=== PATIENT | female | born 1970 | race Caucasian/White ===

== ENCOUNTER → 2017-02-24 | Outpatient (CLI) | payer OTHER | END | disposition home or self-care (01) | LOC: RAD 12:26 | PROVIDERS: ATTEND Orthopaedic Surgery | DX: M94.261 Chondromalacia, right knee (principal); M25.461 Effusion, right knee; S83.191A Other subluxation of right knee, initial encounter; X58.XXXA Exposure to other specified factors, initial encounter; Y93.89 Activity, other specified; Y92.89 Other specified places as the place of occurrence of the external cause; Y99.8 Other external cause status ==

== ENCOUNTER → 2017-11-04 | Outpatient (CLI) | payer OTHER | END | disposition home or self-care (01) | LOC: CFH 11:01 | PROVIDERS: ATTEND Obstetrics & Gynecology | DX: N88.8 Other specified noninflammatory disorders of cervix uteri (principal) | CPT/HCPCS: 76830 ==

== ENCOUNTER 2021-02-03 21:45 | Emergency (ER) | payer OTHER ==
[~2021-02-03] VITALS: Ht 180.3 cm; Wt 149.1 kg
--- NOTE | 2021-02-03 22:24 | NUR ---
PT. TO ED WITH C/O SUDDEN ONSET RIGHT FLANK PAIN THAT RADIATES TO RLQ ABD. IV ESTABLISHED, BLOOD DRAWN. URINE SENT TO LAB. [facility] RESIDENT IN TO EVAL PT. AND DISCUSS POC. AWATING ORDERS.
[2021-02-03] MEDS ORDERED: ONDANSETRON 2MG/ML, 2ML IVPush ONE (22:30)
[2021-02-03] MEDS ORDERED: SODIUM CHLORIDE FLUSH 10ML SYR IVF ONE (22:30)
[2021-02-03] MEDS ORDERED: KETOROLAC 30 MG/1 ML IVPush ONE (22:30)
[2021-02-03] MEDS ORDERED: KETOROLAC 30 MG/1 ML ONE (22:34)
[2021-02-03] MEDS ORDERED: ONDANSETRON 2MG/ML, 2ML ONE (22:34)
--- NOTE | 2021-02-03 22:38 | NUR ---
PT. PACING AROUND ROOM AND TEARFUL. MEDICATED PER MAR.
[2021-02-03 22:39] LABS: MICROSCOPIC INDICATED
[2021-02-03 23:03] LABS: BASOPHILS % (AUTO) 1 % (0-1); EOSINOPHILS % (AUTO) 2 % (1-7); LYMPHOCYTES % (AUTO) 28 % (22-44); MEAN CORPUSCULAR HGB CONC 34.5 g/dL (32.4-35.8); MEAN PLATELET VOLUME 7.7 fL (7.4-10.4); MONOCYTES % (AUTO) 6 % (2-9); NEUTROPHILS % (AUTO) 63 % (42-75); PLATELET COUNT 274 x10^3/uL (130-400); RED BLOOD COUNT 4.62 x10^6/uL (3.82-5.3); RED CELL DISTRIBUTION WIDTH 13.1 % (9.6-15.2)
[2021-02-03 23:04] LABS: MD NO
[2021-02-03 23:13] LABS: ALANINE AMINOTRANSFERASE 32 U/L (12-78); ALBUMIN 3.3 g/dL (3.4-5.0); ANION GAP 7 mmol/L (5-15); CALCIUM 8.4 mg/dL (8.5-10.1); CHLORIDE 112 mmol/L (98-107); CREATININE 1.04 mg/dL (0.55-1.02)
[2021-02-03 23:15] LABS: ALKALINE PHOSPHATASE 78 U/L (45-117); BILIRUBIN,TOTAL 0.3 mg/dL (0.2-1.0); TOTAL PROTEIN 6.9 g/dL (6.4-8.2)
--- NOTE | 2021-02-03 23:33 | NUR ---
PT. REPORTS FEELING MUCH BETTER AFTER MEDS. C/O MILD PAIN BUT DECLINES NEED FOR MORE PAIN MEDS.
--- NOTE | 2021-02-04 00:38 | NUR ---
PT. AWARE OF PLAN FOR D/C. PAIN BACK UP TO 06/07 AND PT. REQUESTING MORE PAIN MEDS PRIOR TO D/C. PT. APPEARS MODERATELY UNCOMFORTABLE, GRIMACING AND PACING AROUND ROOM. ERP UPDATED.
[2021-02-04] MEDS ORDERED: OXYcodone/APAP 5/325MG TABLET ONE (00:47)
[2021-02-04] MEDS ORDERED: HYDROmorphone 1 MG/ML, 1ML INJ ONE (00:50)
[2021-02-04] MEDS ORDERED: HYDROmorphone 2 MG/ML, 1ML IVPush PRN (01:00)
[2021-02-04] MEDS ORDERED: OXYcodone/APAP 5/325MG TABLET PO ONE (01:00)
[2021-02-04] MEDS ORDERED: HYDROmorphone 1 MG/ML, 1ML INJ IVPush PRN (01:01)
--- NOTE | 2021-02-04 01:06 | NUR ---
[facility] RESIDENT BACK IN TO RE-EVAL AND FURTHER DISCUSS POC WITH PT.
[2021-02-04 01:50] VITALS: BP 116/64
== END 2021-02-04 01:53 | disposition home or self-care (01) ==
LOC: ED 22:57
DX: N13.2 Hydronephrosis with renal and ureteral calculous obstruction (principal)
CPT/HCPCS: 36415; 74018; 76770; 80053; 81001; 85025; 87086; 96374; 96375; 99285; J1170; J1885; J2405